=== PATIENT | female | born 1980 | race Caucasian/White ===

== ENCOUNTER → 2017-12-24 | Day surgery (SDC) | payer OTHER ==
[~2017-12-24] VITALS: Ht 157.5 cm; Wt 82.6 kg
[~2017-12-24] MED LIST: ACULAR5 ML OPH; BLEPH-105 ML OPH; BUPROPION HCL200 M2 PO; CLONAZEPAM1 M2 PO; GEMFIBROZIL600 M1 PO; LAMOTRIGINE200 M2 PO; PREMARIN0.9 M1 PO; QUETIAPINE FUM100 M1 PO; VENLAFAXINE HC150 MG PO; VENLAFAXINE HCL75 M1 PO; ZOLPIDEM TARTRA10 M1 PO
--- NOTE | 2017-12-24 09:19 | Operative Report ---
Operative/Inv Procedure Report Surgery Date: 12/24/17 Name of Procedure: LEFT RENAL ESWL: FLUOROSCOPY Pre-Operative Diagnosis: LEFT COLIC WITH BILAT. STONES Post-Operative Diagnosis: SAME Estimated Blood Loss: none Surgeon/Almond Sorter: Naun Valle MD Anesthesia: moderate sedation Complications: NONE Operative/Procedure Note Note: The patient was taken to the operating room and placed on the ESWL table in supine position. With the patient awake, timeout was performed to confirm correct identity, procedure, laterality, anesthesia, and other pertinent kit- operative information. After adequate anesthesia, the patient was positioned so that the patient's left flank was positioned over the table cut-out, overlying the dome of the treatment head. Once the patient was adequately sedated, fluoroscopy, as well as Renal ultrasound was used to locate the LEFT renal stone. Renal US confirmed the presence of the stone which measured it to be approximately 6 mm upper pole stone. The stone was visible with fluoroscopy. Renal US revealed, no hydronephrosis, and no solid tumor, and presence of the stone. The position of the stone was optimized by using fluoroscopy in AP and oblique views;placing the stone within the ESWL c-arm crosshairs. Once the stone's position was optimized , the LEFT renal E.S.W.L. was initiated at low energy level. After noting the patient's tolerance to the shockwaves, the intensitiy was ramped up to maximum level. At the end of the procedure, the left renal stone had dissintegrated. Of note, a total of 2500 shockwaves were delivered to the stone. The patient tolerated the ESWL procedures well, was awakened, then taken to recovery in satisfactory condition via stretcher. The patient was dischared home with pain medications, diet orders, and intructions to catch fragments by straining the urine. The patient to to have follow-up renal ultrasound and KUB in 1 to 2 weeks, prior to follow-up visit in my office. He will then proceed with metabolic stone work-up. Discharge Disposition: Same Day Admissions CC: Naun Valle MD
== END ==
LOC: STS 02:17
DX: N20.0 Calculus of kidney (principal); N23 Unspecified renal colic; N80.9 Endometriosis, unspecified
CPT/HCPCS: J2250

== ENCOUNTER → 2018-03-25 | Day surgery (SDC) | payer OTHER ==
[~2018-03-25] VITALS: Ht 157.5 cm; Wt 81.2 kg
--- NOTE | 2018-03-25 13:41 | Operative Report ---
Operative/Inv Procedure Report Surgery Date: 03/25/18 Name of Procedure: right renal ESWL. fluoroscpy Pre-Operative Diagnosis: right 6mm stone with colic Post-Operative Diagnosis: same Estimated Blood Loss: none Surgeon/Customer Training Specialist: Naun Valle MD Anesthesia: moderate sedation Specimens: none Complications: none Operative/Procedure Note Note: The patient was taken to the operating room placed on the OR table in supine position. Timeout was performed, with the patient awake, in order to confirm correct procedure, laterality, anesthesia, and other pertinent perioperative information. After adequate anesthesia and antibiotics, the patient was then positioned over the ESWL table cutout overlying the treatment dome. Fluoroscopy, using AP and oblique views, as well as renal ultrasound, or performed in order to locate the stone. The position of the RIGHT renal stone was optimized, and positioned in the middle of the ESWL crosshairs. The stone was measured to be approximately 6 mm in size. ESWL was initiated at low power, and after 200 shockwaves delivered , noting the patient's tolerance to the shockwaves, the power was increased to maximum. At the end of 2500 shockwaves, fluoroscopy confirms the change in consistency of the stone, indicating shattering of the stone. All sponge needle and instrument count were correct at the end of the case. The patient tolerated the procedures well, and was taken to the recovery room in satisfactory condition. The patient is discharged home with pain medication, and follow-up instructions with in 2-3 weeks' time. Discharge Disposition: Same Day Admissions CC: Naun Valle MD
== END ==
LOC: STS 03:40
DX: N20.0 Calculus of kidney (principal); R31.9 Hematuria, unspecified; E66.9 Obesity, unspecified; Z68.32 Body mass index [BMI] 32.0-32.9, adult
CPT/HCPCS: J2250